=== PATIENT | male | born 1970 | race African-American/Black ===

== ENCOUNTER 2018-01-21 04:06 | Emergency (ER) | payer MEDICARE, MEDICAID ==
[2018-01-21] MEDS ORDERED: Ketorolac Tromethamine 30 MG/ML VIAL ONE (04:38)
--- NOTE | 2018-01-21 08:45 | RAD ---
RADIOGRAPH RIGHT THIRD DIGIT 3 VIEWS: Date: 01/21/18 HISTORY: 47-year-old male status post acute traumatic injury to the right third digit due to fall. FINDINGS: There is soft tissue swelling around the third PIP joint. There is moderate osteophytosis at the thir d PIP joint and mild fragmented appearance of at least one of the osteophytes. Tiny calcific fragment adjacent to the radial side of the third MCP joint. The DIP joint is relatively normal. No fracture or dislocation. IMPRESSION: 1. No fracture. 2. 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 3. Possibility of gout or CPPD raised. Clinical correlation recommended. POS: FRANK
== END 2018-01-21 05:54 | disposition home or self-care (01) ==
LOC: ERS 04:06
DX: S62.642A Nondisplaced fracture of proximal phalanx of right middle finger, initial encounter for closed fracture (principal); I10 Essential (primary) hypertension; G47.30 Sleep apnea, unspecified; K21.9 Gastro-esophageal reflux disease without esophagitis; Z79.899 Other long term (current) drug therapy; W01.0XXA Fall on same level from slipping, tripping and stumbling without subsequent striking against object, initial encounter
CPT/HCPCS: 80306; 96372; J1885

== ENCOUNTER 2020-06-21 12:17 | Outpatient (CLI) | payer MEDICARE ==
--- NOTE | 2020-06-21 13:03 | ULT ---
EXAM: Left lower extremity venous Doppler US HISTORY: left lower extremity edema and pain FINDINGS: Grayscale, color-flow, Doppler evaluation, spectral analysis of the left lower extremity venous struc tures is performed with 2-D imaging. The left common femoral, superficial femoral, popliteal, posterior tibial, proximal greater saphenous and profunda femoral veins are imaged. There is normal luminal compressibility, flow, and augmentation the visualized deep venous structures of the left lower extremity. IMPRESSION: No evidence of a deep vein thrombosis in the left lower extremity.
== END 2020-06-21 12:18 | disposition home or self-care (01) ==
LOC: BICULT 12:17
PROVIDERS: ATTEND Family Medicine
DX: M79.605 Pain in left leg (principal); R79.89 Other specified abnormal findings of blood chemistry; M25.572 Pain in left ankle and joints of left foot

== ENCOUNTER 2023-05-16 21:55 | Inpatient (IN) | payer OTHER ==
[~2023-05-16 21:55] MED LIST: Iopamidol-370 76% 500 ML MDV (1 ML CHARGE) ONE
[2023-05-16 22:21] LABS: Bacteria/HPF None Seen HPF (None Seen); Bilirubin 1+ (Negative); Blood, Urine Trace (Negative); CAUTI Indications for Culture Acute Hematuria; Clarity Clear (Clear); Glucose, Urine (Dipstick) Normal (Negative); Ketone, Urine Negative (Negative); Leukocyte Negative Leu/uL (Negative); Nitrite Negative (Negative); Protein, Urine (Dipstick) 30 mg/dL (Neg-Trace); RBC/HPF 0-3 HPF (0-3); Specific Gravity, Urine 1.023 (1.002-1.036); Squamous Epithelial 0-3 HPF (0-3); WBC/HPF 0-3 HPF (0-3)
[2023-05-16 22:23] LABS: Urine Culture Reflex No No
[2023-05-16] MEDS ORDERED: Ketorolac Tromethamine 30 MG/ML VIAL ONE (22:53)
[2023-05-16] MEDS ORDERED: Ondansetron PF 4 MG/2 ML Vial ONE (22:53)
[2023-05-16 22:56] LABS: #Eosinphils 0.1 thou/uL (0.0-0.7); #Monocytes 0.7 thou/uL (0.11-0.59); #Neutrophils 4.5 thou/uL (1.40-6.50); %Basophils 0.6 % (0.0-1.0); %Lymphocytes 22.1 % (21.0-51.0); %Monocytes 10.1 % (0.0-10.0); %Neutrophils 64.8 % (42.0-75.0); Hematocrit 43.6 % (42.0-52.0); Hemoglobin 14.9 g/dL (14.0-18.0); Mean Corpuscular HGB CONC 34.2 g/dL (32.0-36.0); Mean Corpuscular Hemoglobin 31.2 pg (27.0-31.0); Mean Corpuscular Volume 91.4 fl (78.0-98.0); Mean Platelet Volume 12.7 fL (7.4-10.4); Platelet Count 177 10x3/uL (130-400); RBC Distribution Width 14.6 % (11.5-14.5); Red Blood Cell (RBC) Count 4.77 mill/uL (4.70-6.10); White Blood Cell (WBC) Count 6.9 10x3/uL (4.8-10.8)
[2023-05-16 23:24] LABS: ALT (SGPT) 325 U/L (8-55); AST (SGOT) 165 U/L (5-34); Albumin 3.7 g/dL (3.5-5.0); Alkaline Phosphatase 177 U/L (40-110); Anion Gap 14 mmol/L (10-20); BUN (Urea Nitrogen) 12 mg/dL (8.4-25.7); Bilirubin, Total 2.3 mg/dL (0.2-1.2); Calc. Creatinine Clearance 0 mL/min (70-130); Calcium 9.2 mg/dL (7.8-10.44); Carbon Dioxide 25 mmol/L (22-29); Chloride 100 mmol/L (98-107); Estimated GFR 83; Globulin 3.3 g/dL (2.4-3.5); Glucose 88 mg/dL (70-105); Lipase 224 U/L (8-78); Potassium 3.1 mmol/L (3.5-5.1); Sodium 136 mmol/L (136-145)
[2023-05-17] MEDS ORDERED: LevoFLOXacin 500 mg/D5W 100 ML BAG ONE (01:38)
[2023-05-17] MEDS ORDERED: Ketorolac Tromethamine 30 MG/ML VIAL IVP PRN (01:58)
[2023-05-17] MEDS ORDERED: Morphine 4 MG/ML VIAL SLOW IVP PRN ×2 (01:58→09:36)
[2023-05-17] MEDS ORDERED: Sodium Chloride 0.9% 1,000 ML IV SCH (02:00)
[2023-05-17] MEDS ORDERED: Ondansetron PF 4 MG/2 ML Vial IVP PRN (02:00)
[2023-05-17 04:00] VITALS: BMI 46.6
[2023-05-17] MEDS ORDERED: traMADol HCl 50 MG TAB PO PRN (06:34)
[2023-05-17] MEDS ORDERED: Lactated Ringer's 1,000 ML IV SCH (06:45)
[2023-05-17] MEDS ORDERED: EPINEPHrine 1 MG/ML VIAL ONE (07:35)
[2023-05-17] MEDS ORDERED: Iopamidol 15 ML ONE (07:35)
[2023-05-17] MEDS ORDERED: Bupivacaine PF 0.5% 30 ML VIAL ONE (07:36)
[2023-05-17] MEDS ORDERED: fentaNYL PF 100 MCG/2 ML SYRINGE ONE (07:40)
[2023-05-17] MEDS ORDERED: PROPOFOL 20 ML ONE (07:40)
[2023-05-17] MEDS ORDERED: Rocuronium Bromide 10 MG/ML (10ML VIAL) ONE ×2 (07:40→08:20)
[2023-05-17] MEDS ORDERED: Dexamethasone 4 mg/ml Vial ONE (07:40)
[2023-05-17] MEDS ORDERED: Ondansetron PF 4 MG/2 ML Vial ONE (07:40)
[2023-05-17] MEDS ORDERED: Lidocaine 1% PF 5 ML VIAL ONE ×2 (07:42→08:20)
[2023-05-17] MEDS ORDERED: Meperidine HCl/PF 25 MG/ML VIAL SLOW IVP PRN (07:46)
[2023-05-17] MEDS ORDERED: HYDROmorphone 2 MG/ML VIAL SLOW IVP PRN (07:46)
[2023-05-17] MEDS ORDERED: Promethazine HCl 25 MG/ML VIAL IM PRN (07:46)
[2023-05-17] MEDS ORDERED: Ondansetron HCl/PF 4 MG/2 ML Vial IVP PRN (07:46)
[2023-05-17] MEDS ORDERED: PACU-Morphine 4MG/ML VIAL SLOW IVP PRN (07:46)
[2023-05-17] MEDS ORDERED: SUGAMMADEX SODIUM 200 MG/2 ML VIAL ONE ×2 (07:57→09:17)
[2023-05-17] MEDS ORDERED: Dexamethasone 20 MG/5 ML VIAL ONE (08:20)
[2023-05-17] MEDS ORDERED: PHENYLEPHRINE-NS 100 MCG/ML 10 ML SYRINGE ONE ×2 (08:20→08:38)
[2023-05-17] MEDS ORDERED: Ketorolac Tromethamine 30 MG/ML VIAL ONE ×2 (08:20→08:27)
[2023-05-17] MEDS ORDERED: PROPOFOL 200 MG/20 ML VIAL ONE (08:20)
[2023-05-17] MEDS ORDERED: Ibuprofen 600 MG TAB PO PRN (08:27)
[2023-05-17] MEDS ORDERED: Acetaminophen 500 MG TAB PO PRN (08:27)
[2023-05-17] MEDS ORDERED: Acetaminophen 500 MG TAB PO SCH (08:30)
[2023-05-17] MEDS ORDERED: Glucagon 1 MG/ML KIT ONE (08:43)
[2023-05-17] MEDS ORDERED: Iopamidol 30 ML ONE (08:58)
[2023-05-17] MEDS ORDERED: Lisinopril 20 MG TAB PO SCH (09:00)
[2023-05-17] MEDS ORDERED: Non-Formulary Item 1 EACH (Omeprazole Magnesium [Prilosec Otc] 20 MG Tab) PO SCH (09:00)
[2023-05-17] MEDS ORDERED: Non-Formulary Item 1 EACH (Nebivolol Hcl [Bystolic] 20 MG Tablet) PO SCH (09:00)
[2023-05-17] MEDS ORDERED: Dexmedetomidine 200 MCG/2 ML VIAL ONE (09:17)
[2023-05-17] MEDS ORDERED: fentaNYL 50 mcg/mL 1 mL Vial ONE (09:39)
[2023-05-17] MEDS: Lisinopril 10 MG TAB PO SCH (10:30)
[2023-05-17] MEDS: Senokot S 8.6-50 MG TAB PO SCH ×2 (10:30→21:30)
[2023-05-17] MEDS: Spironolactone 25 MG TAB PO SCH (10:30)
[2023-05-17] MEDS: Furosemide 40 MG TAB PO SCH (10:30)
[2023-05-17] MEDS: Nebivolol HCl 5 MG TAB PO SCH (10:31)
[2023-05-17] MEDS: Amlodipine 10 MG TAB PO SCH (10:32)
[2023-05-17] MEDS: hydrALAZINE 25 MG TAB PO SCH (10:32)
[2023-05-17] MEDS: Potassium Chloride 20 MEQ in Premix 1 BAG IVPB SCH ×3 (10:32→12:42)
[2023-05-17] MEDS: 1/2 NS w/KCL 20 mEq 1,000 ML IV SCH ×2 (11:10→19:06)
[2023-05-17] MEDS ORDERED: traMADol HCl 50 MG TAB PO SCH (12:00)
[2023-05-17] MEDS: Oxazepam 10 MG CAP PO SCH ×2 (14:32→21:30)
[2023-05-17] MEDS: traMADol HCl 50 MG TAB PO PRN (17:59)
[2023-05-17 20:50] LABS: Magnesium 1.7 mg/dL (1.6-2.6); Phosphorus 3.1 mg/dL (2.3-4.7)
[2023-05-17] MEDS: Ketorolac Tromethamine 30 MG/ML VIAL IVP PRN (21:29)
[2023-05-18] MEDS: LevoFLOXacin 750 mg/D5W 750 MG in Premix 1 BAG IVPB SCH (02:23)
[2023-05-18] MEDS: traMADol HCl 50 MG TAB PO PRN (02:31)
[2023-05-18] MEDS: Nebivolol HCl 5 MG TAB PO SCH ×2 (05:14→12:53)
[2023-05-18] MEDS: 1/2 NS w/KCL 20 mEq 1,000 ML IV SCH ×3 (05:14→18:33)
[2023-05-18 07:05] LABS: #Basophils 0.1 thou/uL (0.0-0.2); #Eosinphils 0.1 thou/uL (0.0-0.7); #Neutrophils 7.3 thou/uL (1.40-6.50); %Basophils 0.5 % (0.0-1.0); %Eosinophils 0.9 % (0.0-10.0); %Lymphocytes 18.8 % (21.0-51.0); %Monocytes 9.8 % (0.0-10.0); %Neutrophils 69.6 % (42.0-75.0); Hematocrit 38.4 % (42.0-52.0); Hemoglobin 12.8 g/dL (14.0-18.0); Mean Corpuscular HGB CONC 33.3 g/dL (32.0-36.0); Mean Corpuscular Hemoglobin 31.1 pg (27.0-31.0); Mean Corpuscular Volume 93.2 fl (78.0-98.0); Mean Platelet Volume 12.1 fL (7.4-10.4); Platelet Count 186 10x3/uL (130-400); Red Blood Cell (RBC) Count 4.12 mill/uL (4.70-6.10); White Blood Cell (WBC) Count 10.5 10x3/uL (4.8-10.8)
[2023-05-18 07:31] LABS: ALT (SGPT) 200 U/L (8-55); AST (SGOT) 89 U/L (5-34); Albumin 2.9 g/dL (3.5-5.0); Alkaline Phosphatase 136 U/L (40-110); Anion Gap 11 mmol/L (10-20); BUN (Urea Nitrogen) 14 mg/dL (8.4-25.7); Bilirubin, Total 1.2 mg/dL (0.2-1.2); Calc. Creatinine Clearance 181 mL/min (70-130); Calcium 8.4 mg/dL (7.8-10.44); Carbon Dioxide 26 mmol/L (22-29); Chloride 104 mmol/L (98-107); Estimated GFR 102; Globulin 2.9 g/dL (2.4-3.5); Glucose 88 mg/dL (70-105); Potassium 3.3 mmol/L (3.5-5.1); Protein, Total 5.8 g/dL (6.0-8.3); Sodium 138 mmol/L (136-145)
[2023-05-18] MEDS ORDERED: Magnesium Sulfate 3 GM, Potassium Chloride 40 MEQ in Sodium Chloride 0.9% 250 ML 250 ML IVPB SCH (09:30)
[2023-05-18] MEDS ORDERED: PROPOFOL 20 ML ONE (10:15)
[2023-05-18] MEDS ORDERED: fentaNYL 50 mcg/mL 1 mL Vial ONE (10:15)
[2023-05-18] MEDS ORDERED: Indomethacin 50 MG SUPP ONE (10:16)
[2023-05-18] MEDS ORDERED: Rocuronium Bromide 10 MG/ML (10ML VIAL) ONE ×2 (10:16→10:29)
[2023-05-18] MEDS ORDERED: Lidocaine 2% PF 5 ML VIAL ONE (10:16)
[2023-05-18] MEDS ORDERED: Iopamidol 30 ML ONE (10:17)
[2023-05-18] MEDS ORDERED: SUGAMMADEX SODIUM 200 MG/2 ML VIAL ONE (10:20)
[2023-05-18] MEDS ORDERED: Famotidine/PF 20 mg/2ml Vial ONE (10:20)
[2023-05-18] MEDS ORDERED: Ondansetron PF 4 MG/2 ML Vial ONE ×2 (10:24→10:29)
[2023-05-18] MEDS ORDERED: PROPOFOL 200 MG/20 ML VIAL ONE (10:29)
[2023-05-18] MEDS ORDERED: Lidocaine 1% PF 5 ML VIAL ONE (10:29)
[2023-05-18] MEDS: Ketorolac Tromethamine 30 MG/ML VIAL IVP PRN (12:40)
[2023-05-18] MEDS: hydrALAZINE 25 MG TAB PO SCH (12:49)
[2023-05-18] MEDS: Amlodipine 10 MG TAB PO SCH (12:49)
[2023-05-18] MEDS: Lisinopril 10 MG TAB PO SCH (12:50)
[2023-05-18] MEDS: Senokot S 8.6-50 MG TAB PO SCH ×2 (12:50→20:23)
[2023-05-18] MEDS: Spironolactone 25 MG TAB PO SCH (12:52)
[2023-05-18] MEDS: Furosemide 40 MG TAB PO SCH (12:53)
[2023-05-18] MEDS: Oxazepam 10 MG CAP PO SCH ×3 (15:36→20:25)
[2023-05-19] MEDS: LevoFLOXacin 750 mg/D5W 750 MG in Premix 1 BAG IVPB SCH (01:53)
[2023-05-19] MEDS: 1/2 NS w/KCL 20 mEq 1,000 ML IV SCH ×3 (01:53→19:29)
[2023-05-19] MEDS: Ketorolac Tromethamine 30 MG/ML VIAL IVP PRN (02:03)
[2023-05-19 07:01] LABS: ALT (SGPT) 173 U/L (8-55); AST (SGOT) 71 U/L (5-34); Albumin 3.5 g/dL (3.5-5.0); Alkaline Phosphatase 145 U/L (40-110); Anion Gap 12 mmol/L (10-20); BUN (Urea Nitrogen) 11 mg/dL (8.4-25.7); Bilirubin, Total 1.2 mg/dL (0.2-1.2); Calc. Creatinine Clearance 188 mL/min (70-130); Calcium 8.9 mg/dL (7.8-10.44); Carbon Dioxide 26 mmol/L (22-29); Chloride 103 mmol/L (98-107); Estimated GFR 103; Globulin 3.1 g/dL (2.4-3.5); Glucose 87 mg/dL (70-105); Lipase 137 U/L (8-78); Potassium 3.8 mmol/L (3.5-5.1); Protein, Total 6.6 g/dL (6.0-8.3); Sodium 137 mmol/L (136-145)
[2023-05-19] MEDS: Lisinopril 10 MG TAB PO SCH (08:39)
[2023-05-19] MEDS: hydrALAZINE 25 MG TAB PO SCH (08:39)
[2023-05-19] MEDS: Amlodipine 10 MG TAB PO SCH (08:41)
[2023-05-19] MEDS: Oxazepam 10 MG CAP PO SCH ×2 (08:41→15:27)
[2023-05-19] MEDS: Senokot S 8.6-50 MG TAB PO SCH (08:41)
[2023-05-19] MEDS: Spironolactone 25 MG TAB PO SCH (08:42)
[2023-05-19] MEDS: Nebivolol HCl 5 MG TAB PO SCH (08:42)
[2023-05-19] MEDS: Furosemide 40 MG TAB PO SCH (08:47)
[2023-05-19 19:44] VITALS: BP 146/85; TEMP 97.7
[2023-05-20] MEDS ORDERED: FLU VACC QS2023-24(6MOS UP)/PF 60 MCG/0.5 ML SYRINGE IM ONE (09:00)
== END 2023-05-19 19:40 | disposition home or self-care (01) | DRG 419 ==
LOC: ERS 21:55 → MSONC 05-17 01:41 → OBSVTOIN 05-17 09:42
PROVIDERS: ADMIT Specialist; ATTEND Specialist
PROC: 0FT44ZZ Resection of Gallbladder, Percutaneous Endoscopic Approach (ICD-10-PCS; principal; 2023-05-17)
PROC: BF141ZZ Fluoroscopy of Gallbladder, Bile Ducts and Pancreatic Ducts using Low Osmolar Contrast (ICD-10-PCS; 2023-05-17)
PROC: 3E033XZ Introduction of Vasopressor into Peripheral Vein, Percutaneous Approach (ICD-10-PCS; 2023-05-17)
PROC: 5A09357 Assistance with Respiratory Ventilation, Less than 24 Consecutive Hours, Continuous Positive Airway Pressure (ICD-10-PCS; 2023-05-17)
PROC: 0FC98ZZ Extirpation of Matter from Common Bile Duct, Via Natural or Artificial Opening Endoscopic (ICD-10-PCS; 2023-05-18)
DX: K80.00 Calculus of gallbladder with acute cholecystitis without obstruction (principal); I10 Essential (primary) hypertension; K21.9 Gastro-esophageal reflux disease without esophagitis; G47.30 Sleep apnea, unspecified; Z98.890 Other specified postprocedural states; Z98.84 Bariatric surgery status; Z90.49 Acquired absence of other specified parts of digestive tract
CPT/HCPCS: 36415; 47532; 74178; 74330; 76705; 80053; 81001; 83690; 83735; 84100; 85025; 88304; 94660; 96361; 96365; 96375; C1889; G0378; J0171; J1100; J1611; J1650; J1885; J1956; J2001; J2270; J2405; J2704; J3010; J3475; J3480; J7050; Q9967; S0020; S0028

== ENCOUNTER 2023-12-13 21:03 | Inpatient (IN) | payer OTHER ==
[2023-12-13 22:02] LABS: #Basophils 0.09 10x3/uL (0.0-0.2); %Basophils 0.8 % (0.0-1.0); %Eosinophils 5.7 % (0.0-10.0); %Lymphocytes 21.8 % (21.0-51.0); %Monocytes 8.2 % (0.0-10.0); %Neutrophils 63.3 % (42.0-75.0); Hematocrit 48.5 % (42.0-52.0); Hemoglobin 16.6 g/dL (14.0-18.0); Mean Corpuscular HGB CONC 34.2 g/dL (32.0-36.0); Mean Corpuscular Volume 93.6 fL (78.0-98.0); Platelet Count 209 10x3/uL (130-400); RBC Distribution Width 13.4 % (11.5-14.5); Red Blood Cell (RBC) Count 5.18 mill/uL (4.70-6.10)
[2023-12-13 22:19] LABS: ALT (SGPT) 31 U/L (8-55); AST (SGOT) 24 U/L (5-34); Alkaline Phosphatase 108 U/L (40-110); Anion Gap 19 mmol/L (10-20); BUN (Urea Nitrogen) 59 mg/dL (8.4-25.7); Bilirubin, Total 0.6 mg/dL (0.2-1.2); Calc. Creatinine Clearance 0 mL/min (70-130); Calcium 9.6 mg/dL (7.8-10.44); Carbon Dioxide 22 mmol/L (22-29); Chloride 100 mmol/L (98-107); Estimated GFR 9; Globulin 3.3 g/dL (2.4-3.5); Glucose 93 mg/dL (70-105); Lipase 54 U/L (8-78); Magnesium 2.1 mg/dL (1.6-2.6); Protein, Total 7.3 g/dL (6.0-8.3); Sodium 137 mmol/L (136-145)
[2023-12-13 22:24] LABS: Troponin I Less than 0.010 ng/mL (< 0.028)
[2023-12-14 00:23] LABS: Potassium, Urine 42.3 mmol/L
[2023-12-14 00:50] LABS: Troponin I Less than 0.010 ng/mL (< 0.028)
[2023-12-14] MEDS: Lactated Ringer's 1,000 ML IV SCH ×2 (01:18→08:14)
[2023-12-14 01:22] VITALS: BMI 42.5
[2023-12-14 02:18] LABS: Bacteria/HPF None Seen HPF (None Seen); Bilirubin Negative (Negative); Blood, Urine Trace (Negative); CAUTI Indications for Culture Alt mental st,lethar; Clarity Clear (Clear); Glucose, Urine (Dipstick) Normal (Negative); Ketone, Urine Negative (Negative); Leukocyte Negative Leu/uL (Negative); Nitrite Negative (Negative); Protein, Urine (Dipstick) 30 mg/dL (Neg-Trace); RBC/HPF 0-3 HPF (0-3); Specific Gravity, Urine 1.021 (1.002-1.036); Squamous Epithelial 0-3 HPF (0-3); WBC/HPF 0-3 HPF (0-3)
[2023-12-14 02:21] LABS: Urine Culture Reflex No No
[2023-12-14 04:07] LABS: #Basophils 0.09 10x3/uL (0.0-0.2); %Basophils 0.9 % (0.0-1.0); %Eosinophils 6.6 % (0.0-10.0); %Lymphocytes 24.9 % (21.0-51.0); %Monocytes 8.4 % (0.0-10.0); %Neutrophils 58.9 % (42.0-75.0); Hematocrit 42.5 % (42.0-52.0); Hemoglobin 14.3 g/dL (14.0-18.0); Mean Corpuscular HGB CONC 33.6 g/dL (32.0-36.0); Mean Corpuscular Hemoglobin 31.9 pg (27.0-31.0); Mean Corpuscular Volume 94.9 fL (78.0-98.0); Mean Platelet Volume 11.8 fL (7.4-10.4); Platelet Count 176 10x3/uL (130-400); RBC Distribution Width 13.4 % (11.5-14.5); Red Blood Cell (RBC) Count 4.48 mill/uL (4.70-6.10)
[2023-12-14 04:33] LABS: Phosphorus 5.3 mg/dL (2.3-4.7)
[2023-12-14 04:35] LABS: ALT (SGPT) 24 U/L (8-55); AST (SGOT) 19 U/L (5-34); Albumin 3.4 g/dL (3.5-5.0); Alkaline Phosphatase 96 U/L (40-110); Anion Gap 14 mmol/L (10-20); BUN (Urea Nitrogen) 57 mg/dL (8.4-25.7); Bilirubin, Total 0.4 mg/dL (0.2-1.2); Calc. Creatinine Clearance 28 mL/min (70-130); Calcium 8.7 mg/dL (7.8-10.44); Carbon Dioxide 21 mmol/L (22-29); Chloride 106 mmol/L (98-107); Estimated GFR 13; Globulin 2.5 g/dL (2.4-3.5); Glucose 97 mg/dL (70-105); Potassium 3.7 mmol/L (3.5-5.1); Protein, Total 5.9 g/dL (6.0-8.3); Sodium 137 mmol/L (136-145)
[2023-12-14 04:44] LABS: Troponin I Less than 0.010 ng/mL (< 0.028)
[2023-12-14] MEDS: Mometasone 200 MCG/Formoterol 5 MCG 120 PUFF INHALER INH SCH (06:41)
[2023-12-14] MEDS: Heparin 5,000 UNITS/ML VIAL SC SCH (08:14)
[2023-12-14] MEDS ORDERED: hydrALAZINE 25 MG TAB PO SCH (09:00)
[2023-12-14] MEDS ORDERED: Amlodipine 10 MG TAB PO SCH (09:00)
[2023-12-14] MEDS ORDERED: Nebivolol HCl 5 MG TAB PO SCH (09:00)
[2023-12-14] MEDS: Polyethylene Glycol 3350 17 GM Packet PO SCH (11:20)
[2023-12-14 14:12] LABS: Amphetamine Detected (NotDetected); Barbiturates Screen Not Detected (NotDetected); Benzodiazepine Screen Not Detected (NotDetected); Cocaine Metabolite Screen Not Detected (NotDetected); Methadone Not Detected (NotDetected); Methamphetamine Not Detected (NotDetected); Opiate Screen Not Detected (NotDetected); Oxycodone Screen Not Detected (NotDetected); Phencyclidine (PCP) Not Detected (NotDetected); THC/Cannabinoid Screen Not Detected (NotDetected); Tricyclic Screen Not Detected (NotDetected)
[2023-12-14 16:14] LABS: Anion Gap 10 mmol/L (10-20); BUN (Urea Nitrogen) 47 mg/dL (8.4-25.7); Calc. Creatinine Clearance 50 mL/min (70-130); Calcium 8.7 mg/dL (7.8-10.44); Carbon Dioxide 25 mmol/L (22-29); Chloride 106 mmol/L (98-107); Estimated GFR 25; Glucose 91 mg/dL (70-105); Potassium 4.1 mmol/L (3.5-5.1); Sodium 137 mmol/L (136-145)
[2023-12-14] MEDS: Acetaminophen 325 MG TAB PO PRN (20:49)
[2023-12-15 04:22] LABS: #Basophils 0.08 10x3/uL (0.0-0.2); %Basophils 1.2 % (0.0-1.0); %Eosinophils 13.2 % (0.0-10.0); %Lymphocytes 31.6 % (21.0-51.0); %Monocytes 8.6 % (0.0-10.0); %Neutrophils 45.2 % (42.0-75.0); Hematocrit 40.8 % (42.0-52.0); Hemoglobin 13.6 g/dL (14.0-18.0); Mean Corpuscular HGB CONC 33.3 g/dL (32.0-36.0); Mean Corpuscular Hemoglobin 31.6 pg (27.0-31.0); Mean Corpuscular Volume 94.7 fL (78.0-98.0); Mean Platelet Volume 12.1 fL (7.4-10.4); Platelet Count 157 10x3/uL (130-400); RBC Distribution Width 13.2 % (11.5-14.5); Red Blood Cell (RBC) Count 4.31 mill/uL (4.70-6.10)
[2023-12-15 04:35] LABS: ALT (SGPT) 20 U/L (8-55); AST (SGOT) 18 U/L (5-34); Albumin 3.1 g/dL (3.5-5.0); Alkaline Phosphatase 91 U/L (40-110); Anion Gap 13 mmol/L (10-20); BUN (Urea Nitrogen) 36 mg/dL (8.4-25.7); Bilirubin, Total 0.2 mg/dL (0.2-1.2); Calc. Creatinine Clearance 85 mL/min (70-130); Calcium 8.6 mg/dL (7.8-10.44); Carbon Dioxide 23 mmol/L (22-29); Chloride 109 mmol/L (98-107); Estimated GFR 48; Globulin 2.5 g/dL (2.4-3.5); Glucose 97 mg/dL (70-105); Potassium 3.9 mmol/L (3.5-5.1); Protein, Total 5.6 g/dL (6.0-8.3); Sodium 141 mmol/L (136-145)
[2023-12-15 04:38] LABS: Phosphorus 3.1 mg/dL (2.3-4.7)
[2023-12-15 08:51] VITALS: TEMP 97.6
[2023-12-15 12:06] VITALS: BP 140/96
== END 2023-12-15 12:55 | disposition home or self-care (01) | DRG 683 ==
LOC: ERS 21:03 → 2NO 23:35
PROVIDERS: ADMIT Emergency Medicine; ATTEND Emergency Medicine
DX: N17.9 Acute kidney failure, unspecified (principal); Z68.41 Body mass index [BMI] 40.0-44.9, adult; I10 Essential (primary) hypertension; K21.9 Gastro-esophageal reflux disease without esophagitis; G47.33 Obstructive sleep apnea (adult) (pediatric); E66.9 Obesity, unspecified; M10.9 Gout, unspecified; J45.909 Unspecified asthma, uncomplicated; M13.862 Other specified arthritis, left knee; M13.861 Other specified arthritis, right knee; Z79.899 Other long term (current) drug therapy; Z90.49 Acquired absence of other specified parts of digestive tract
CPT/HCPCS: 36415; 70450; 71045; 76770; 80053; 80306; 81001; 82436; 82550; 82570; 83690; 83735; 83880; 83930; 83935; 84100; 84133; 84300; 84484; 85025; 93005; J1644; J7120